=== PATIENT | female | born 1965 | race Caucasian/White ===

== ENCOUNTER 2017-12-16 11:55 | Emergency (ER) | payer BC ==
[~2017-12-16] VITALS: Ht 160 cm; Wt 52.3 kg
[2017-12-16 11:59] VITALS: Ht 160 cm; Wt 52.3 kg
[2017-12-16] MEDS ORDERED: TROKENDI (12:01)
[2017-12-16] MEDS ORDERED: CYCLOBENZAPRINE10 MG PO (12:01)
[2017-12-16] MEDS ORDERED: OMEPRAZOLE40 MG PO (12:01)
[2017-12-16] MEDS ORDERED: DETROL LA4 MG PO (12:02)
[2017-12-16] MEDS ORDERED: INDERAL LA80 MG PO (12:02)
[2017-12-16] MEDS ORDERED: ATIVAN1 MG PO (12:02)
[2017-12-16] MEDS ORDERED: BACTRIM 400-801 TAB PO (12:41)
[2017-12-16 13:48] VITALS: BP 134/84
== END 2017-12-16 13:48 | disposition home or self-care (01) ==
LOC: EDBD 11:55 → D.ER 11:55
DX: L02.413 Cutaneous abscess of right upper limb (principal)